=== PATIENT | female | born 1980 | race Caucasian/White ===

== ENCOUNTER 2017-07-06 14:03 | Emergency (ER) | payer SELFPAY ==
[~2017-07-06] VITALS: Ht 170.2 cm; Wt 45.4 kg
[~2017-07-06 14:03] MED LIST: BUSP15TA60; GABA-488; LAMO25TA; LOXA10CA; MIRT30TA6
--- OUTSIDE RECORDS SUMMARY | 2017-07-06 14:09 | XMS REPORT ---
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
--- OUTSIDE RECORDS SUMMARY | 2017-07-06 14:09 | XMS REPORT ---
Author JAIME Keller [employer] Address Unknown Phone Unavailable Care Team Providers Care Cold Roll Inspector Name Role Phone JAIME ZAYAS CP Unavailable Allergies No Known Allergies Problems Problem Type Condition Code Onset Dates Condition Status Assessment Alcohol abuse F10.10 Active Assessment PTSD (post-traumatic stress disorder) F43.10 Active Assessment RUBIA (generalized anxiety disorder) F41.1 Active Problem RUBIA (generalized anxiety disorder) F41.1 Active Problem Alcohol abuse F10.10 Active Problem PTSD (post-traumatic stress disorder) F43.10 Active Problem Nondependent tobacco use disorder Z72.0 Active Problem Dysmenorrhea N94.6 Active Problem Major depressive disorder, recurrent, moderate F33.1 Active Problem Urticaria, unspecified L50.9 Active Medications Medication Code System Code Instructions Start Date End Date Status Dosage Lamictal [facility] [address]-51 25 MG Orally 1 tab q AM for 2 weeks; then increase to 2 tabs each morning. July 16, 2015 1 tablet BusPIRone HCl [facility] [address]-96 15 MG Orally 2 times a day [address] [facility] [address]-43 220 MG Orally every 12 hrs 1 tablet as needed Lamictal [facility] [address]-63 100 MG Orally Once a day July 16, [address] [facility] [id number] 300 MG Orally Three times a day [address] [facility] [address]-56 30 MG Orally take at bedtime 1 tablet Procedures Procedure Coding System Code Date Office Visit, Est Pt., Level 4 CPT-4 13274 July 16, 2015 Vital Signs Date/Time: July 16, 2015 Cardiac Monitoring Heart Rate 76 bpm Weight 127.5 lbs Height 68 in BMI 19.38 Index Blood Pressure Diastolic 64 mmHg Blood Pressure Systolic 118 mmHg Results No Known Results Summary Purpose eClinicalWorks Submission
--- OUTSIDE RECORDS SUMMARY | 2017-07-06 14:09 | XMS REPORT ---
Author Author JAIME ZAYAS Organization [facility] Address [address] [place] [address] Care Team Providers Care Kennel Helper Name Role Phone JAIME ZAYAS Unavailable PROBLEMS Type Condition ICD9-CM Code [id number] Code Onset Dates Condition Status SNOMED Code Problem Dysmenorrhea N94.6 Active 129428486 Problem Nondependent tobacco use disorder Z72.0 Active 29223242 Problem Moderate episode of recurrent major depressive disorder F33.1 Active 461602787 Problem Alcohol abuse, 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 Active 015230588 Problem Major depressive disorder, recurrent, moderate F33.1 Active 987649501 Problem Urticaria, unspecified L50.9 Active 604668035 Problem PTSD (post-traumatic stress disorder) F43.10 Active 77981900 Problem RUBIA (generalized anxiety disorder) F41.1 Active 85675914 ALLERGIES No Information SOCIAL HISTORY Never Assessed PLAN OF CARE VITAL SIGNS MEDICATIONS Medication Instructions Dosage Frequency Start Date End Date Duration Status Neurontin 600 MG Orally 1 tab Q AM and HS; Take 1/2 tab at 3pm 1 capsule 30 days Active RESULTS No Results PROCEDURES No Known procedures IMMUNIZATIONS No Known Immunizations MEDICAL (GENERAL) HISTORY Type Description Date Medical History irritable bowel syndrome Medical History chronic pain--lower back Medical History anxiety Medical History MRSA--December 2010 Medical History Other and unspecified alcohol dependence, unspecified drunkenness Surgical History tubal ligation Surgical History Chest Tube 2009
--- OUTSIDE RECORDS SUMMARY | 2017-07-06 14:10 | XMS REPORT ---
Author JAIME Keller [facility] eClinicalWorks Address Unknown Phone Unavailable Care Team Providers Care Fire Equipment Inspector Name Role Phone JAIME ZAYAS CP Unavailable Allergies No Known Allergies Problems Problem Type Condition ICD-9 Code Onset Dates Condition Status Problem Generalized anxiety disorder 300.02 Active Problem Major depressive disorder, recurrent episode, moderate 296.32 Active Problem Unspecified urticaria 708.9 Active Problem Other and unspecified alcohol dependence, unspecified drunkenness 303.90 Active Problem Nondependent tobacco use disorder 305.1 Active Problem Dysmenorrhea 625.3 Active Problem Pain in joint, shoulder region 719.41 Active Problem Screening for malignant neoplasm of the cervix V76.2 Active Medications No Known Medications Results No Known Results Summary Purpose eClinicalWorks Submission
--- OUTSIDE RECORDS SUMMARY | 2017-07-06 14:10 | XMS REPORT ---
Author Author JAIME ZAYAS Organization [facility] Address [address] [place] [address] Care Team Providers Care Farm Crew Member Name Role Phone JAIME ZAYAS Unavailable PROBLEMS Type Condition ICD9-CM Code [id number] Code Onset Dates Condition Status SNOMED Code Problem Nondependent tobacco use disorder Z72.0 Active 45825707 Problem Dysmenorrhea N94.6 Active 077201076 Problem Alcohol abuse, 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 Active 170860618 Problem PTSD (post-traumatic stress disorder) F43.10 Active 10436750 Problem Major depressive disorder, recurrent, moderate F33.1 Active 399234011 Problem Urticaria, unspecified L50.9 Active 027031778 Problem RUBIA (generalized anxiety disorder) F41.1 Active 73160607 Problem Alcohol abuse F10.10 Active 76488124 ALLERGIES Unknown Allergies SOCIAL HISTORY No smoking Hx information available PLAN OF CARE VITAL SIGNS MEDICATIONS Medication Instructions Dosage Frequency Start Date End Date Duration Status Neurontin 600 MG Orally 2 times a day 1 capsule 12h Active RESULTS No Results PROCEDURES No Known procedures IMMUNIZATIONS No Known Immunizations
--- OUTSIDE RECORDS SUMMARY | 2017-07-06 14:10 | XMS REPORT ---
Author JAIME Keller [employer] Address Unknown Phone Unavailable Care Team Providers Care Railcar Switcher Name Role Phone JAIME ZAYAS CP Unavailable Allergies No Known Allergies Problems Problem Type Condition Code Onset Dates Condition Status Assessment RUBIA (generalized anxiety disorder) F41.1 Active Problem Dysmenorrhea N94.6 Active Assessment PTSD (post-traumatic stress disorder) F43.10 Active Assessment Alcohol abuse, 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 Active Problem PTSD (post-traumatic stress disorder) F43.10 Active Problem RUBIA (generalized anxiety disorder) F41.1 Active Problem Alcohol abuse, 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 Active Problem Urticaria, unspecified L50.9 Active Problem Nondependent tobacco use disorder Z72.0 Active Problem Alcohol abuse F10.10 Active Problem Major depressive disorder, recurrent, moderate F33.1 Active Medications Medication Code System Code Instructions Start Date End Date Status Dosage Aleve [facility] [address]-11 220 MG Orally every 12 hrs 1 tablet as needed Seroquel [facility] [address]-46 25 MG Orally at bedtime September 17, 2015 1 tablet BusPIRone HCl [facility] [address]-37 15 MG Orally Take 2 tablets in AM and 1 tablet in evening 1 tablet Neurontin [facility] [address]-58 600 MG Orally 2 times a day 1 capsule Procedures Procedure Coding System Code Date Office Visit, Est Pt., Level 4 CPT-4 04136 October 08, 2015 Vital Signs Date/Time: October 08, 2015 Cardiac Monitoring Heart Rate 76 bpm Weight 117 lbs Height 68 in Blood Pressure Diastolic 70 mmHg Blood Pressure Systolic 118 mmHg Results No Known Results Summary Purpose eClinicalWorks Submission
--- OUTSIDE RECORDS SUMMARY | 2017-07-06 14:10 | XMS REPORT ---
Author JAIME Keller [employer] Address Unknown Phone Unavailable Care Team Providers Care Desizing Machine Operator Name Role Phone JAIME ZAYAS CP Unavailable Allergies, Adverse Reactions, Alerts Substance Reaction Event Type N.K.D.A. Info Not Available Non Drug Allergy Problems Problem Type Condition Code Onset Dates [...] Instructions Start Date End Date Status Dosage Mirtazapine [facility] [address]-25 30 MG Orally take at bedtime [place] [address]-69 220 MG Orally every 12 hrs 1 [place] [address]-34 30 MG Orally 1 full tablet in AM and 1/2 tablet at 5pm 1 [place] [address]-93 300 MG Orally Three times a day Jan 01, 2015 1 capsule Procedures Procedure Coding System Code Date Office Visit, Est Pt., Level 4 CPT-4 42581 Apr 09, 2015 Vital Signs Date/Time: Apr 09, 2015 Blood Pressure Systolic 110 mmHg Weight 132.7 lbs Height 68 in BMI 20.17 Index Blood Pressure Diastolic 66 mmHg Results No Known Results Summary Purpose eClinicalWorks Submission
--- OUTSIDE RECORDS SUMMARY | 2017-07-06 14:10 | XMS REPORT ---
Author JAIME Keller [employer] Address Unknown Phone Unavailable Care Team Providers Care Wax Pattern Assembler Name Role Phone JAIME ZAYAS CP Unavailable [...] Instructions Start Date End Date Status Dosage BusPIRone HCl [facility] [address]-29 15 MG Orally 2 times a day 1 tablet Neurontin [facility] 55837629079 300 MG Orally Three times a day 1 capsule Results No Known Results Summary Purpose eClinicalWorks Submission
--- OUTSIDE RECORDS SUMMARY | 2017-07-06 14:10 | XMS REPORT ---
Author JAIME Keller [employer] Address Unknown Phone Unavailable Care Team Providers Care Beam Warper Name Role Phone JAIME ZAYAS CP Unavailable Allergies, Adverse Reactions, Alerts Substance Reaction Event Type N.K.D.A. Info Not Available Non Drug Allergy Problems Problem Type Condition Code Onset Dates Condition Status Assessment RUBIA (generalized anxiety disorder) F41.1 Active Problem Generalized anxiety disorder 300.02 Active Assessment PTSD (post-traumatic stress disorder) F43.10 Active Assessment Generalized anxiety disorder 300.02 Active Assessment Post traumatic stress disorder (PTSD) 309.81 Active Problem Major depressive disorder, recurrent episode, moderate 296.32 Active Problem Unspecified urticaria 708.9 Active Problem Other and unspecified alcohol dependence, unspecified drunkenness 303.90 Active Problem Nondependent tobacco use disorder 305.1 Active Problem Dysmenorrhea 625.3 Active Problem Pain in joint, shoulder region 719.41 Active Problem Screening for malignant neoplasm of the cervix V76.2 Active Medications Medication Code System Code Instructions Start Date End Date Status Dosage BusPIRone HCl [facility] [address]-85 15 MG Orally Twice a day Jan 01, 2015 1 tablet HM Fexofenadine HCl [facility] [address]-58 180 MG Orally Once a day July 25, 2014 1 tablet Mirtazapine [facility] [address]-67 15 MG Orally Take 1-2 tablets at bedtime for sleep 1 tablet Neurontin [facility] [address]-15 300 MG Orally 1 tab at bedtime for 3 night then increase to 1 tab BID Jan 01, 2015 1 capsule Procedures Procedure Coding System Code Date Office Visit, Est Pt., Level 4 CPT-4 74451 Jan 01, 2015 Vital Signs Date/Time: Jan 01, 2015 Cardiac Monitoring Heart Rate 88 bpm Weight 117.9 lbs Height 68 in BMI 17.92 Index Blood Pressure Diastolic 74 mmHg Blood Pressure Systolic 122 mmHg Results No Known Results Summary Purpose eClinicalWorks Submission
--- OUTSIDE RECORDS SUMMARY | 2017-07-06 14:10 | XMS REPORT ---
Author Author JAIME ZAYAS Organization [facility] Address [address] [place] [address] Care Team Providers Care Customer Service Representative Teller Name Role Phone JAIME ZAYAS Unavailable PROBLEMS Type Condition ICD9-CM Code [id number] Code Onset Dates Condition Status SNOMED Code Problem Nondependent tobacco use disorder Z72.0 Active 62941482 Problem Dysmenorrhea N94.6 Active 563421393 Problem Moderate episode of recurrent major depressive disorder F33.1 Active 307040279 Problem Alcohol abuse, 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 Active 891052433 Problem Major depressive disorder, recurrent, moderate F33.1 Active 146690565 Problem Urticaria, unspecified L50.9 Active 477678893 Problem PTSD (post-traumatic stress disorder) F43.10 Active 50890534 Problem RUBIA (generalized anxiety disorder) F41.1 Active 97518825 ALLERGIES Substance Reaction Event Type Date Status N.K.D.A. Unknown Non Drug Allergy Feb, Unknown SOCIAL HISTORY No smoking Hx information available PLAN OF CARE Activity Details Follow Up 3 Months Reason: VITAL SIGNS Height 68 in 2016-03-03 Weight 107.0 lbs 2016-03-03 Heart Rate 96 bpm 2016-03-03 Respiratory Rate 20 2016-03-03 BMI 16.27 kg/m2 2016-03-03 Blood pressure systolic 123 mmHg 2016-03-03 Blood pressure diastolic 70 mmHg 2016-03-03 MEDICATIONS Medication Instructions Dosage Frequency Start Date End Date Duration Status Cyproheptadine HCl 4 MG Orally Once at bedtime 1 tablet Feb, Active Seroquel 25 MG Orally at bedtime as needed for sleep 1 tablet Aug, Active Neurontin 600 MG Orally 1 tab Q AM and HS; Take 1/2 tab at 3pm 1 capsule Active RESULTS No Results PROCEDURES Procedure Date Ordered Related Diagnosis Body Site MH Office Visit, Est Pt., Level 4 Mar 03, 2016 IMMUNIZATIONS No Known Immunizations
--- OUTSIDE RECORDS SUMMARY | 2017-07-06 14:10 | XMS REPORT ---
Author Author ELIZABETH ORELLANA eClinicalWorks Address Unknown Phone Unavailable Care Team Providers Care Press Puller Name Role Phone ELIZABETH ORELLANA Unavailable Allergies, Adverse Reactions, Alerts Substance Reaction Event Type N.K.D.A. Info Not Available Non Drug Allergy Problems Problem Type Condition Code Onset Dates Condition Status Assessment Menorrhagia with irregular cycle N92.1 Active Assessment Well woman exam Z01.419 Active Assessment Encounter for screening for malignant neoplasm of cervix Z12.4 Active Problem RUBIA (generalized anxiety disorder) F41.1 Active Assessment History of alcohol abuse Z87.898 Active Problem Alcohol abuse F10.10 Active Problem PTSD (post-traumatic stress disorder) F43.10 Active Problem Nondependent tobacco use disorder Z72.0 Active Problem Dysmenorrhea N94.6 Active Problem Major depressive disorder, recurrent, moderate F33.1 Active Problem Urticaria, unspecified L50.9 Active Assessment Hot flashes N95.1 Active Assessment Tobacco use Z72.0 Active Assessment Weight gain R63.5 Active Assessment Anxiety associated with depression F41.8 Active Assessment Abdominal cramping R10.9 Active Assessment Dysmenorrhea N94.6 Active Assessment Breast tenderness N64.4 Active Assessment Abdominal bloating associated with menstruation N94.9 Active Assessment Sore throat J02.9 Active Assessment Cold intolerance R68.89 Active Medications Medication Code System Code Instructions Start Date End Date Status Dosage Mirtazapine [facility] [address]-87 30 MG Orally take at bedtime 1 [place] [address]-49 300 MG Orally Three times a day Jan 01, 2015 1 capsule BusPIRone HCl [facility] 89098058941 15 MG Orally Twice a day 1 tablet Procedures Procedure Coding System Code Date COMPLETE CBC W/AUTO DIFF WBC CPT-4 03095 Feb 23, 2015 COMPREHEN METABOLIC PANEL CPT-4 45233 Feb 23, 2015 SPECIMEN HANDLING CPT-4 69493 Feb 23, 2015 Preventive Care Est Pt. Age 18-39 CPT-4 89745 Feb 23, 2015 URINE TEST CPT-4 11339 Feb 23, 2015 VENIPUNCT, ROUTINE* CPT-4 26514 Feb 23, 2015 GLYCATED HEMOGLOBIN TEST CPT-4 09662 Feb 23, 2015 ASSAY THYROID STIM HORMONE CPT-4 17535 Feb 23, 2015 URINALYSIS, AUTO, W/O SCOPE CPT-4 41874 Feb 23, 2015 ASSAY OF PROLACTIN CPT-4 31040 Feb 23, 2015 Vital Signs Date/Time: Feb 23, 2015 Temperature 98.2 F Weight 133.0 lbs Height 68 in BMI 20.22 Index Blood Pressure Diastolic 74 mmHg Blood Pressure Systolic 126 mmHg Cardiac Monitoring Heart Rate 72 bpm Results Name Result Date Reference Range Unit Abnormality Flag ROUTINE VENIPUNCTURE TEST, URINE (IN HOUSE) ----RESULTS Negative [id number] ----Lot # [id number] ----Control + [id number] ----Exp date [id number] UA LONG DIP (IN HOUSE) ----TIFFANIE Negative [id number] ----GLU Negative [id number] ----SG 1.010 [id number] ----KET Negative [id number] ----pH 6.0 20150223 ----Protein Negative [id number] ----BLO 3+ [id number] ----CARLY Negative [id number] ----Color Yellow [id number] ----Odor None [id number] ----Exp date [id number] ----URO 0.2 [id number] ----NIT Negative [id number] ----Clarity Clear [id number] ----Lot # [id number] Summary Purpose eClinicalWorks Submission
--- OUTSIDE RECORDS SUMMARY | 2017-07-06 14:10 | XMS REPORT ---
Author JAIME Keller [facility] eClinicalWorks Address Unknown Phone Unavailable Care Team Providers Care Business Continuity Director Name Role Phone JAIME ZAYAS CP Unavailable Allergies No Known Allergies Problems Problem Type Condition Code Onset Dates Condition Status Problem Generalized anxiety disorder 300.02 Active Problem Nondependent tobacco use disorder 305.1 Active Problem Dysmenorrhea 625.3 Active Problem RUBIA (generalized anxiety disorder) F41.1 Active Problem Alcohol abuse F10.10 Active Problem PTSD (post-traumatic stress disorder) F43.10 Active Problem Pain in joint, shoulder region 719.41 Active Problem Screening for malignant neoplasm of the cervix V76.2 Active Problem Major depressive disorder, recurrent episode, moderate 296.32 Active Problem Unspecified urticaria 708.9 Active Assessment Alcohol abuse F10.10 Active Assessment RUBIA (generalized anxiety disorder) F41.1 Active Assessment PTSD (post-traumatic stress disorder) F43.10 Active Medications Medication Code System Code Instructions Start Date End Date Status Dosage BusPIRone HCl [facility] [address]-06 15 MG Orally Twice a day Jan 01, 2015 1 tablet HM Fexofenadine HCl [facility] [address]-58 180 MG Orally Once a day July 25, 2014 1 tablet Neurontin [facility] [address]-93 300 MG Orally Three times a day Jan 01, 2015 1 capsule Mirtazapine [facility] [address]-63 30 MG Orally take at bedtime 1 tablet Procedures Procedure Coding System Code Date Office Visit, Est Pt., Level 4 CPT-4 75276 Feb 05, 2015 Vital Signs Date/Time: Feb 05, 2015 Cardiac Monitoring Heart Rate 68 bpm Weight 121.9 lbs Height 68 in BMI 18.53 Index Blood Pressure Diastolic 70 mmHg Blood Pressure Systolic 122 mmHg Results No Known Results Summary Purpose eClinicalWorks Submission
--- OUTSIDE RECORDS SUMMARY | 2017-07-06 14:10 | XMS REPORT ---
Author Author JAIME ZAYAS [facility] Address [address] [place] [address] Care Team Providers Care Luggage Repairer Name Role Phone JAIME ZAYAS Unavailable PROBLEMS Type Condition ICD9-CM Code [id number] Code Onset Dates Condition Status SNOMED Code Problem Dysmenorrhea N94.6 Active 410856033 Problem Nondependent tobacco use disorder Z72.0 Active 01845086 Problem Moderate episode of recurrent major depressive disorder F33.1 Active 688112596 Problem Alcohol abuse, 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 Active 298295397 Problem Major depressive disorder, recurrent, moderate F33.1 Active 607089829 Problem Urticaria, unspecified L50.9 Active 705309333 Problem PTSD (post-traumatic stress disorder) F43.10 Active 58557184 Problem RUBIA (generalized anxiety disorder) F41.1 Active 52402675 ALLERGIES Unknown Allergies SOCIAL HISTORY No smoking Hx information available PLAN OF CARE VITAL SIGNS MEDICATIONS Unknown Medications RESULTS No Results PROCEDURES No Known procedures IMMUNIZATIONS No Known Immunizations
--- OUTSIDE RECORDS SUMMARY | 2017-07-06 14:11 | XMS REPORT | Continuity of Care Document ---
Author Author [facility] Address Unknown Phone Unavailable Allergies Active Description Code Type Severity Reaction Onset Reported/Identified Relationship to Patient Clinical Status Yes No Known Drug Allergies [id number] Drug Allergy Unknown N/A 04/29/2014 Medications There is no data. Problems Date Dx Coded Attending Type Code Diagnosis Diagnosed By 01/06/2011 SHIREEN GIPSON DO V12.04 PERSONAL HISTORY OF METHICILLIN RESISTANT STAPHYLOCOCCUS AUREUS [facility]AL HISTORY OF METHICILLIN RESISTANT STAPHYLOCOCCUS AUREUS 01/06/2011 GERA VILLASEÑOR PSYD V12.04 PERSONAL HISTORY OF METHICILLIN RESISTANT STAPHYLOCOCCUS AUREUS 01/06/2011 SHIREEN GIPSON DO V12.04 PERSONAL HISTORY OF METHICILLIN RESISTANT STAPHYLOCOCCUS AUREUS 01/06/2011 GERA VILLASEÑOR PSYD V12.04 PERSONAL HISTORY OF METHICILLIN RESISTANT STAPHYLOCOCCUS AUREUS 01/06/2011 VINICIUS BELLA APRN R V12.04 PERSONAL HISTORY OF METHICILLIN RESISTANT STAPHYLOCOCCUS AUREUS 01/06/2011 VINICIUS BELLA APRN R V12.04 PERSONAL HISTORY OF METHICILLIN RESISTANT STAPHYLOCOCCUS AUREUS 01/06/2011 GERA VILLASEÑOR PSYD V12.04 PERSONAL HISTORY OF METHICILLIN RESISTANT STAPHYLOCOCCUS AUREUS 06/11/2012 SHIREEN GIPSON DO 305.1 TOBACCO ABUSE 06/11/2012 SHIREEN GIPSON DO 625.3 DYSMENORRHEA 06/11/2012 SHIREEN GIPSON DO V76.2 CERVICAL CANCER SCREENING (PAP SMEAR) 06/11/2012 [facility] 305.1 TOBACCO A[facility]SE 06/11/2012 [facility] 625.3 DYSMENORRHEA 06/11/2012 [facility] V76.2 CERVICAL CANCER SCREENING (PAP SMEAR) 06/11/2012 GERA VILLASEÑOR PSYD 305.1 TOBACCO ABUSE 06/11/2012 GERA VILLASEÑOR PSYD 625.3 DYSMENORRHEA 06/11/2012 GERA VILLASEÑOR PSYD V76.2 CERVICAL CANCER SCREENING (PAP SMEAR) 06/11/2012 LEONELA OWENSHIREEN K 305.1 TOBACCO ABUSE 06/11/2012 LEONELA OWENSHIREEN K 625.3 DYSMENORRHEA 06/11/2012 LEONELA OWENSHIREEN K V76.2 CERVICAL CANCER SCREENING (PAP SMEAR) 06/11/2012 GERA VILLASEÑOR PSYD L 305.1 TOBACCO ABUSE 06/11/2012 GERA VILLASEÑOR PSYD L 625.3 DYSMENORRHEA 06/11/2012 GERA VILLASEÑOR PSYD L V76.2 CERVICAL CANCER SCREENING (PAP SMEAR) 06/11/2012 SHAYNE CONTROLLER REPAIRER AND TESTER, VINICIUS R 305.1 TOBACCO ABUSE 06/11/2012 SHAYNE CONTROLLER REPAIRER AND TESTER, VINICIUS R 625.3 DYSMENORRHEA 06/11/2012 SHAYNE CONTROLLER REPA[employer]ER AND TESTER, VINICIUS R V76.2 CERVICAL CANCER SCREENING (PAP SMEAR) 06/11/2012 SHAYNE CONTROLL[employer] REPA[employer]ER [employer] TESTER, VINICIUS R 305.1 TOBACCO ABUSE 06/11/2012 SHAYNE CONTROLLER REPAIRER AND TESTER, VINICIUS R 625.3 DYSMENORRHEA 06/11/2012 SHAYNE CONTROLL[employer] REPA[employer]ER [employer] TESTER, VINICIUS R V76.2 CERVICAL CANCER SCREENING (PAP SMEAR) 06/11/2012 GERA VILLASEÑOR PSYD L 305.1 TOBACCO ABUSE 06/11/2012 GERA VILLASEÑOR PSYD L 625.3 DYSMENORRHEA 06/11/2012 GERA VILLASEÑOR PSYD V76.2 CERVICAL CANCER SCREENING (PAP SMEAR) 10/06/2012 [facility] Gee 708.9 UNSPECIFIED URTICARIA 10/06/2012 GERA VILLASEÑOR PSYD L 708.9 UNSPECIFIED URTICARIA 10/06/2012 SHIREEN GIPSON DO 708.9 UNSPECIFIED URTICARIA 10/06/2012 GERA VILLASEÑOR PSYD L 708.9 UNSPECIFIED URTICARIA 10/06/2012 SHAYNE VALDOVINOS, VINICIUS R 708.9 UNSPECIFIED URTICARIA 10/06/2012 SHAYNE [employer], VINICIUS R 708.9 UNSPECIFIED URTICARIA 10/06/2012 GERA VILLASEÑOR PSYD L 708.9 UNSPECIFIED URTICARIA 10/17/2012 [facility] Gee 300.02 AN GEN ANXIETY 10/17/2012 GERA VILLASEÑOR PSYD 300.02 AN GEN ANXIETY 10/17/2012 SHIREEN GIPSON DO K 300.02 AN GEN ANXIETY 10/17/2012 GERA VILLASEÑOR PSYD 300.02 AN GEN ANXIETY 10/17/2012 SHAYNE VALDOVINOS VINICIUS R 300.02 AN GEN ANXIETY 10/17/2012 SHAYNE VALDOVINOS VINICIUS R 300.02 AN GEN ANXIETY 10/17/2012 GERA VILLASEÑOR PSYD 300.02 AN GEN ANXIETY 04/30/2014 MONTALVO DO, KEELY D Ot 276.1 04/30/2014 MONTALVO DO, KEELY D Ot 276.8 04/30/2014 MONTALVO DO, KEELY D Ot 300.00 04/30/2014 MONTALVO DO, KEELY D Ot 305.01 04/30/2014 MONTALVO DO, KEELY D Ot 311 04/30/2014 MONTALVO DO, KEELY D Ot 850.11 04/30/2014 MONTALVO DO, KEELY D Ot 873.41 04/30/2014 MONTALVO DO, KEELY D Ot 873.42 04/30/2014 MONTALVO DO, KEELY D Ot 873.43 04/30/2014 MONTALVO DO, KEELY D Ot E000.8 04/30/2014 MONTALVO DO, KEELY D Ot E849.6 04/30/2014 MONTALVO DO, KEELY D Ot E885.9 04/30/2014 MONTALVO DO, KEELY D Ot V06.1 05/02/2014 GERA VILLASEÑOR PSYD 296.32 MO DEPRESSIVE RECURRENT MODERATE 05/02/2014 GERA VILLASEÑOR PSYD L 303.90 OTHER AND UNSPECIFIED ALCOHOL DEPENDENCE UNSPECIFIED DRINKING BEHAVIOR 05/02/2014 SHIREEN GIPSON DO K 296.32 MO DEPRESSIVE RECURRENT MODERATE 05/02/2014 SHIREEN GIPSON DO K 303.90 OTHER AND UNSPECIFIED ALCOHOL DEPENDENCE UNSPECIFIED DRINKING BEHAVIOR 05/02/2014 GERA VILLASEÑOR PSYD L 296.32 MO DEPRESSIVE RECURRENT MODERATE 05/02/2014 GERA VILLASEÑOR PSYD L 303.90 OTHER AND UNSPECIFIED ALCOHOL DEPENDENCE UNSPECIFIED DRINKING BEHAVIOR 05/02/2014 VINICIUS BELLA APRN R 296.32 MO DEPRESSIVE RECURRENT MODERATE 05/02/2014 SHAYNE VALDOVINOS VINICIUS R 303.90 OTHER AND UNSPECIFIED ALCOHOL DEPENDENCE UNSPECIFIED DRINKING BEHAVIOR 05/02/2014 SHAYNE VALDOVINOS, VINICIUS R 296.32 MO DEPRESSIVE RECURRENT MODERATE 05/02/2014 SHAYNE VALDOVINOS, VINICIUS R 303.90 OTHER AND UNSPECIFIED ALCOHOL DEPENDENCE UNSPECIFIED DRINKING BEHAVIOR 05/02/2014 GERA VILLASEÑOR PSYD L 296.32 MO DEPRESSIVE RECURRENT MODERATE 05/02/2014 GERA VILLASEÑOR PSYD L 303.90 OTHER AND UNSPECIFIED ALCOHOL DEPENDENCE UNSPECIFIED DRINKING BEHAVIOR 06/06/2014 LEONELA OWEN, SHIREEN K 719.41 PAIN IN JOINT INVOLVING SHOULDER REGION 06/06/2014 GERA VILLASEÑOR PSYD L 719.41 PAIN IN JOINT INVOLVING SHOULDER REGION 06/06/2014 MELA BELLA APRNINA R 719.41 PAIN IN JOINT INVOLVING SHOULDER REGION 06/06/2014 MELA BELLA APRNINA R 719.41 PAIN IN JOINT INVOLVING SHOULDER REGION 06/06/2014 GERA VILLASEÑOR PSYD L 719.41 PAIN IN JOINT INVOLVING SHOULDER REGION 07/01/2014 SHAYNE VALDOVINOS VINICIUS R 787.91 DIARRHEA 07/01/2014 SHAYNE VALDOVINOS VINICIUS R V70.0 ROUTINE GENERAL MEDICAL EXAMINATION AT A HEALTH CARE FACILITY 07/01/2014 SHAYNE VALDOVINOS VINICIUS R 787.91 DIARRHEA 07/01/2014 SHAYNE VALDOVINOS VINICIUS R V70.0 ROUTINE GENERAL MEDICAL EXAMINATION AT A HEALTH CARE FACILITY 07/01/2014 GERA VILLASEÑOR PSYD L 787.91 DIARRHEA 07/01/2014 GERA VILLASEÑOR PSYD V70.0 ROUTINE GENERAL MEDICAL EXAMINATION AT A HEALTH CARE FACILITY 07/15/2014 GERA VILLASEÑOR PSYD L 300.21 AN PANIC DIS W AGORA 08/31/2015 MIGUEL BERNSTEIN, PAOLO Weber Ot E16.2 HYPOGLYCEMIA, UNSPECIFIED 08/31/2015 MIGUEL BERNSTEIN, PAOLO Weber Ot E87.6 HYPOKALEMIA 08/31/2015 MIGUEL BERNSTEIN, PAOLO Weber Ot F12.10 CANNABIS ABUSE, UNCOMPLICATED 08/31/2015 PAOLO RIVERA MD Ot F15.10 OTHER STIMULANT ABUSE, UNCOMPLICATED 08/31/2015 MIGUEL BERNSTEIN, PAOLO Weber Ot F17.210 NICOTINE DEPENDENCE, CIGARETTES, UNCOMPL 08/31/2015 MIGUEL BERNSTEIN, PAOLO Weber Ot F41.9 ANXIETY DISORDER, UNSPECIFIED 08/31/2015 PAOLO RIVERA MD Ot R00.0 TACHYCARDIA, UNSPECIFIED Procedures Code Description [place] [address] PAP SMEAR 06/13/2012 Q0091 PAP SMEAR OBTAIN SMEAR 06/13/2012 94433 PSYCH DIAGNOSTIC EVALUATION 05/02/2014 33840 PSYTX PT&/FAMILY 45 MINUTES 06/27/2014 17947 ROUTINE VENIPUNCTURE 07/02/2014 78308 CBC 07/02/2014 [id number] GFR CALC (RESULT ONLY) 07/02/2014 74602 CMP 07/02/2014 60207 LIPID PANEL 07/02/2014 60113 TSH 07/02/2014 08297 PSYTX PT&/FAMILY 45 MINUTES 07/15/2014 Results There is no data. Encounters ACCT No. Visit Date/Time Discharge Status Pt. Type Provider Facility Loc./Unit Complaint [id number] 07/15/2014 12:51:00 07/15/2014 23:59:59 CLS Outpatient GERA VILLASEÑOR PSYD [id number] 07/02/2014 07:52:00 07/02/2014 23:59:59 CLS Outpatient VINICIUS BELLA APRN [id number] 07/01/2014 10:03:00 07/01/2014 23:59:59 CLS Outpatient VINICIUS BELLA APRN [id number] 06/27/2014 08:02:00 06/27/2014 23:59:59 CLS Outpatient GERA VILLASEÑOR PSYD [id number] 06/16/2014 09:49:00 06/16/2014 23:59:59 CLS Outpatient SHIREEN GIPSON DO [id number] 05/02/2014 11:02:00 05/02/2014 23:59:59 CLS Outpatient GERA VILLASEÑOR PSYD [id number] 10/17/2012 12:27:00 10/17/2012 23:59:59 CLS Outpatient SENAIT OLMSTEAD [id number] 06/11/2012 15:42:00 06/11/2012 23:59:59 CLS Outpatient SHIREEN GIPSON DO [id number] 07/14/2014 19:30:42 ACT Document Registration [id number] 08/27/2015 10:45:00 08/27/2015 12:11:00 DIS Outpatient MIGUEL BERNSTEIN, PAOLO Weber [facility] ER [id number] 07/14/2014 19:30:00 07/14/2014 21:00:00 DIS Emergency EDDA BAILON APRN [facility] ER [id number] 04/29/2014 18:19:00 04/30/2014 15:25:00 DIS Inpatient KEELY MONTALVO DO [facility] ICU
--- NOTE | 2017-07-06 14:41 | ED Syncope ---
General Chief Complaint: Dizziness/Syncope Stated Complaint: PASSED OUT ABOUT AN HOUR AGO,ALVES Nursing Triage Note: PT AMBULATED TO RM 8 W/O DIFFICULTIES, ACCOMPANIED BY SISTER. PT STATES SHE WAS AT HOME AND BEGAN TO FEEL HOT. PT'S SISTER STATES THE PT SAID "MOM" THREE TIMES AND THEN PASSED OUT ON THE FLOOR. PT UNSURE IF SHE HIT HER HEAD. STATES SHE HAS "SLIGHT" ALVES. PT DENIES NECK PAIN AND RATES PAIN OF 0/10 AT THIS TIME. PT STATES SHE IS UNDER A LOT OF STRESS RIGHT NOW, BUT "CAN'T TALK ABOUT IT. PT STATES SHE OCCASSIONALY SMOKES POT, BUT DENIES USE OF ANYTHING TODAY. Source of Information: Patient Exam Limitations: No Limitations History of Present Illness Date Seen by Provider: Jul 06, 2017 Time Seen by Provider: 14:30 Initial Comments To ER by private vehicle with reports of syncope.patient states that shepast out at around 11:30 this morning. She states that immediately before passing out she had a sensation of intense anxiety. She states this is not unusual for her, she has been under a lot of increased stress lately but is always a very anxious and sometimes depressed person. She denies any palpitations or lightheadedness. The loss of consciousness was only a few seconds and she feels back to normal now. She denies any chest pain or dyspnea. Symptoms Prior to Episode: Other (anxiety) Loss of Consciousness: Brief (Seconds) Allergies and Home Medications Allergies Coded Allergies: No Known Drug Allergies (Unverified , 04/29/14) Patient Home Medication List Home Medication List Reviewed: Yes Constitutional: see HPI EENTM: see HPI Respiratory: no symptoms reported Cardiovascular: no symptoms reported Genitourinary: no symptoms reported Musculoskeletal: no symptoms reported Skin: no symptoms reported Psychiatric/Neurological: No Symptoms Reported Past Mkolntr-Jrrnkc-Jittav Hx Patient Social History Alcohol Use: Denies Use Recreational Drug Use: Yes Drug of Choice: MARIJUANA Smoking Status: Current Everyday Smoker Type Used: Cigarettes 2nd Hand Smoke Exposure: Yes Recent Foreign Travel: No Contact w/Someone Who Travel: No Recent Infectious Disease Expo: No Physical Abuse: No Sexual Abuse: No Immunizations Up To Date Tetanus Booster (TDap): Unknown Seasonal Allergies Seasonal Allergies: No Past Medical History Surgeries: Yes (Procedure for treatment of pneumothorax) Tubal Ligation Respiratory: Yes (Pneumothorax, tobaccoism) Cardiac: No Neurological: No Reproductive Disorders: No Sexually Transmitted Disease: No Gastrointestinal: No Musculoskeletal: No Endocrine: No Cancer: No Psychosocial: Yes Sleep Difficulties, Anxiety, Depression Nursing Suicide Risk Score: 0 Integumentary: No Blood Disorders: No Family Medical History Psychiatric Problems, Stroke Physical Exam Vital Signs Vital Signs - First Documented 07/06/17 14:09 Temp 96.4 Pulse 67 B/P (MAP) 138/94 (109) O2 Delivery Room Air Capillary Refill : Less Than 3 Seconds General Appearance: No Apparent Distress, WD/WN, Thin HEENT: PERRL/EOMI, TMs Normal Neck: Full Range of Motion, Normal Inspection Cardiovascular: Regular Rate, Rhythm, Normal Peripheral Pulses Respiratory: Normal Breath Sounds, No Accessory Muscle Use, No Respiratory Distress Gastrointestinal: Non Tender, Soft Neurologic/Psychiatric: Alert, Oriented x3, No Motor/Sensory Deficits Cranial Nerves: Normal Hearing, Normal Speech, PERRL Skin: Normal Color, Warm/Dry (50 spine) Progress/Results/Core Measures Lab Results Laboratory Tests Test 07/06/17 14:45 Range/Units White Blood Count 13.9 H 4.3-11.0 10^3/uL Red Blood Count 4.61 4.35-5.85 10^6/uL Hemoglobin 14.4 11.5-16.0 G/DL Hematocrit 42 35-52 % Mean Corpuscular Volume 91 80-99 FL Mean Corpuscular Hemoglobin 31 25-34 PG Mean Corpuscular Hemoglobin Concent 34 32-36 G/DL Red Cell Distribution Width 12.8 10.0-14.5 % Platelet Count 321 130-400 10^3/uL Mean Platelet Volume 9.6 7.4-10.4 FL Neutrophils (%) (Auto) 82 H 42-75 % Lymphocytes (%) (Auto) 12 12-44 % Monocytes (%) (Auto) 5 0-12 % Eosinophils (%) (Auto) 0 0-10 % Basophils (%) (Auto) 0 0-10 % Neutrophils # (Auto) 11.4 H 1.8-7.8 X 10^3 Lymphocytes # (Auto) 1.7 1.0-4.0 X 10^3 Monocytes # (Auto) 0.7 0.0-1.0 X 10^3 Eosinophils # (Auto) 0.1 0.0-0.3 10^3/uL Basophils # (Auto) 0.1 0.0-0.1 10^3/uL Urine Color YELLOW Urine Clarity SLIGHTLY CLOUDY Urine pH 6 5-9 Urine Specific [place] 1.025 H 1.016-1.022 Urine Protein 3+ H NEGATIVE Urine Glucose (UA) 2+ H NEGATIVE Urine Ketones 1+ H NEGATIVE Urine Nitrite NEGATIVE NEGATIVE Urine Bilirubin NEGATIVE NEGATIVE Urine Urobilinogen 1 NORMAL MG/DL Urine Leukocyte Esterase 1+ H NEGATIVE Urine RBC (Auto) 1+ H NEGATIVE Urine RBC 2-5 H /HPF Urine WBC 2-5 /HPF Urine Squamous Epithelial Cells >50 H /HPF Urine Crystals NONE /LPF Urine Bacteria FEW H /HPF Urine Casts NONE /LPF Urine Mucus SMALL H /LPF Urine Culture Indicated NO Sodium Level 135 135-145 MMOL/L Potassium Level 3.8 3.6-5.0 MMOL/L Chloride Level 102 98-107 MMOL/L Carbon Dioxide Level 26 21-32 MMOL/L Anion Gap 7 5-14 MMOL/L Blood Urea Nitrogen 7 7-18 MG/DL Creatinine 0.74 0.60-1.30 MG/DL Estimat Glomerular Filtration Rate > 60 BUN/Creatinine Ratio 9 Glucose Level 134 H 70-105 MG/DL Calcium Level 9.4 8.5-10.1 MG/DL Total Bilirubin 0.4 0.1-1.0 MG/DL Aspartate Amino Transf (AST/SGOT) 21 5-34 U/L Alanine Aminotransferase (ALT/SGPT) 16 0-55 U/L Alkaline Phosphatase 72 40-136 U/L Total Protein 7.5 6.4-8.2 GM/DL Albumin 4.4 3.2-4.5 GM/DL Urine Opiates Screen NEGATIVE NEGATIVE Urine Oxycodone Screen NEGATIVE NEGATIVE Urine Methadone Screen NEGATIVE NEGATIVE Urine Propoxyphene Screen NEGATIVE NEGATIVE Urine Barbiturates Screen NEGATIVE NEGATIVE Ur Tricyclic Antidepressants Screen NEGATIVE NEGATIVE Urine Phencyclidine Screen NEGATIVE NEGATIVE Urine Amphetamines Screen POSITIVE H NEGATIVE Urine Methamphetamines Screen NEGATIVE NEGATIVE Urine Benzodiazepines Screen POSITIVE H NEGATIVE Urine Cocaine Screen NEGATIVE NEGATIVE Urine Cannabinoids Screen POSITIVE H NEGATIVE Serum Alcohol < 10 <10 MG/DL My Orders Orders - EDDA BAILON APRN Ct Head Wo (07/06/17 14:31) Cbc With Automated Diff (07/06/17 14:31) Comprehensive Metabolic Panel (07/06/17 14:31) Ua Culture If Indicated (07/06/17 14:31) Drug Screen Stat (Urine) (07/06/17 14:31) Ekg Tracing (07/06/17 14:31) Alcohol (07/06/17 14:33) Vital Signs/I&O 07/06/17 14:09 Temp 96.4 Pulse 67 B/P (MAP) 138/94 (109) O2 Delivery Room Air Blood Pressure Mean: 109 Departure Impression Primary Impression: Anxiety Additional Impression: Syncope Disposition: 01 HOME, SELF-CARE Condition: Stable Departure-Patient Inst. Decision time for Depature: 15:57 Referrals: [facility] (PCP/Family) Primary Care Physician Patient Instructions: Syncope (Fainting) (DC) Add. Discharge Instructions: 1. Follow up with your doctor next week for recheck 2. Return to ER for any concerns All discharge instructions reviewed with patient and/or family. Voiced understanding. EDDA BAILON PROPERTY CLAIMS ADJUSTER Jul 06, 2017 14:41
[2017-07-06 14:54] LABS: BASOPHILS # (AUTO) 0.1 10^3/uL (0.0-0.1); BASOPHILS % (AUTO) 0 % (0-10); EOSINOPHILS # (AUTO) 0.1 10^3/uL (0.0-0.3); EOSINOPHILS % (AUTO) 0 % (0-10); HEMATOCRIT 42 % (35-52); HEMOGLOBIN 14.4 G/DL (11.5-16.0); LYMPHOCYTES # (AUTO) 1.7 X 10^3 (1.0-4.0); LYMPHOCYTES % (AUTO) 12 % (12-44); MEAN CORPUSCULAR HEMOGLOBIN 31 PG (25-34); MEAN CORPUSCULAR HGB CONC 34 G/DL (32-36); MEAN CORPUSCULAR VOLUME 91 FL (80-99); MEAN PLATELET VOLUME 9.6 FL (7.4-10.4); MONOCYTES # (AUTO) 0.7 X 10^3 (0.0-1.0); MONOCYTES % (AUTO) 5 % (0-12); NEUTROPHILS # (AUTO) 11.4 X 10^3 (1.8-7.8); NEUTROPHILS % (AUTO) 82 % (42-75); PLATELET COUNT 321 10^3/uL (130-400); RED BLOOD COUNT 4.61 10^6/uL (4.35-5.85); RED CELL DISTRIBUTION WIDTH 12.8 % (10.0-14.5); WHITE BLOOD COUNT 13.9 10^3/uL (4.3-11.0)
[2017-07-06 14:55] LABS: BILIRUBIN,URINE NEGATIVE (NEGATIVE); CLARITY,URINE SLIGHTLY CLOUDY; COLOR,URINE YELLOW; GLUCOSE, URINE (UA) 2+ (NEGATIVE); KETONES,URINE 1+ (NEGATIVE); LEUKOCYTE ESTERASE ,URINE 1+ (NEGATIVE); NITRITE,URINE NEGATIVE (NEGATIVE); PH,URINE 6 (5-9); PROTEIN,URINE 3+ (NEGATIVE); UROBILINOGEN,URINE 1 MG/DL (NORMAL)
[2017-07-06 15:05] LABS: BACTERIA,URINE FEW /HPF; SQUAMOUS EPITHELIAL CELL,UR >50 /HPF
[2017-07-06 15:07] LABS: AMPHETAMINE SCREEN, URINE POSITIVE (NEGATIVE); BARBITURATE SCREEN URINE NEGATIVE (NEGATIVE); BENZODIAZEPINES SCREEN URINE POSITIVE (NEGATIVE); CANNABINOID SCREEN, URINE POSITIVE (NEGATIVE); COCAINE SCREEN URINE NEGATIVE (NEGATIVE); METHADONE STAT NEGATIVE (NEGATIVE); METHAMPHETAMINE SCREEN URINE S NEGATIVE (NEGATIVE); OPIATE SCREEN URINE NEGATIVE (NEGATIVE); OXYCODONE STAT NEGATIVE (NEGATIVE); PROPOXYPHENE STAT NEGATIVE (NEGATIVE); TRICYCLIC ANTIDEPRESSANTS SCRE NEGATIVE (NEGATIVE)
[2017-07-06 15:15] LABS: ALANINE AMINOTRANSFERASE 16 U/L (0-55); ALBUMIN 4.4 GM/DL (3.2-4.5); ALKALINE PHOSPHATASE 72 U/L (40-136); BILIRUBIN,TOTAL 0.4 MG/DL (0.1-1.0); BUN/CREATININE RATIO 9; CALCIUM 9.4 MG/DL (8.5-10.1); CARBON DIOXIDE 26 MMOL/L (21-32); CHLORIDE 102 MMOL/L (98-107); CREATININE SERUM 0.74 MG/DL (0.60-1.30); GFR ESTIMATED > 60; GLUCOSE 134 MG/DL (70-105); POTASSIUM 3.8 MMOL/L (3.6-5.0); SODIUM 135 MMOL/L (135-145); TOTAL PROTEIN 7.5 GM/DL (6.4-8.2)
--- NOTE | 2017-07-06 15:38 | Diagnostic Imaging Report ---
PROCEDURE: CT head without contrast. TECHNIQUE: Multiple contiguous axial images were obtained through the brain without the use of intravenous contrast. INDICATION: Anxiety, stress, passing out. COMPARISON: 04/29/2014. FINDINGS: The exam is stable and normal. There is no hemorrhage, hydrocephalus, edema, mass, or mass effect. Basilar cisterns are patent. The ventricular system is nondilated and nondisplaced. The orbits, sinuses, and calvarium appear normal. IMPRESSION: Stable normal CT head. Dictated by: Dictated on workstation # [id number]
[2017-07-06 16:35] VITALS: BP 121/92
== END 2017-07-06 16:35 | disposition home or self-care (01) ==
LOC: EDUNIT# 14:03 → ER 14:05
DX: F41.9 Anxiety disorder, unspecified (principal); R55 Syncope and collapse; F32.9 Major depressive disorder, single episode, unspecified; F12.10 Cannabis abuse, uncomplicated; F17.210 Nicotine dependence, cigarettes, uncomplicated; Z98.51 Tubal ligation status
CPT/HCPCS: 36415; 70450; 80053; 80306; 80320; 81000; 85025; 93005